=== PATIENT | male | born 1955 | race Caucasian/White ===

== ENCOUNTER → 2016-09-05 | Outpatient (CLI) | payer OTHER | LOC: MOB LAB 12:10 | PROVIDERS: ATTEND Internal Medicine | DX: E56.9 Vitamin deficiency, unspecified (principal); Z80.42 Family history of malignant neoplasm of prostate; Z12.5 Encounter for screening for malignant neoplasm of prostate | CPT/HCPCS: 82607; G0103 ==

== ENCOUNTER → 2016-09-27 | Outpatient (CLI) | payer OTHER | LOC: MOB LAB 16:38 | PROVIDERS: ATTEND Internal Medicine | DX: M79.1 Myalgia (principal) | CPT/HCPCS: 36415; 82550 ==

== ENCOUNTER → 2016-10-05 | Outpatient (CLI) | payer OTHER | LOC: MOB LAB 16:45 | PROVIDERS: ATTEND Internal Medicine | DX: C43.72 Malignant melanoma of left lower limb, including hip (principal); D12.6 Benign neoplasm of colon, unspecified | CPT/HCPCS: 36415; 82378 ==

== ENCOUNTER 2018-01-17 12:01 | Observation (INO) ==
[~2018-01-17 12:01] MED LIST: LIDOCAINE W/ SODIUM BICARB 0.5 ML SYR ONE; LIDOCAINE W/ SODIUM BICARB 0.5 ML SYR SUBD ONE; Lactated Ringers 1,000 ML PRIMARY IV ONE; ceFAZolin Inj 2gm (Premix) 2 GM/50 ML BAG IV ONE
[2018-01-17] MEDS ORDERED: diphenhydrAMINE 50 MG/1 ML VIAL ONE (14:05)
[2018-01-17] MEDS ORDERED: diphenhydrAMINE 50 MG/1 ML VIAL IVP ONE (14:05)
[2018-01-17] MEDS ORDERED: THROMBIN (BOVINE) 20,000 UNIT KIT TOPICAL ONE (15:00)
[2018-01-17] MEDS ORDERED: Sodium Chloride 0.9% vial 10 ML ONE (15:00)
[2018-01-17] MEDS ORDERED: BACITRACIN 50,000 UNIT VIAL IRRIG ONE (15:00)
[2018-01-17] MEDS ORDERED: LIDOCAINE HCL 2 % 10 ML JELLY URO-JECT TOPICAL ONE ×2 (15:26→17:05)
[2018-01-17] MEDS ORDERED: Propofol 1,000 MG/100 ML VIAL IV ONE ×2 (15:34→17:55)
[2018-01-17] MEDS ORDERED: REMIFENTANIL HCL 5 MG VIAL IV ONE ×2 (15:34→18:28)
[2018-01-17] MEDS ORDERED: MIDAZOLAM 5 MG/1 ML ONE (15:35)
[2018-01-17] MEDS ORDERED: LIDOCAINE MPF 2% - 5 ML (20 MG/1 ML) ONE (15:35)
[2018-01-17] MEDS ORDERED: ePHEDrine Inj 50 MG/ML AMP ONE (16:28)
[2018-01-17] MEDS ORDERED: Lactated Ringers 1,000 ML PRIMARY IV ONE ×2 (16:36→20:50)
[2018-01-17] MEDS ORDERED: PROPOFOL 10 MG/1 ML (200 MG/20 ML) VIAL IV ONE (17:10)
[2018-01-17] MEDS ORDERED: ONDANSETRON 4 MG/2 ML VIAL ONE (18:58)
[2018-01-17] MEDS ORDERED: HYDROmorphone 2 MG/1 ML ONE (18:59)
--- NOTE | 2018-01-17 19:55 | OPNOTE.NEU ---
Operative Note Operative Note: Neurosurgical Services Operative Note [facility] [place] Date of Surgery: 01-17-2018 Preoperative Diagnosis: Cervical herniated disc, C3-4, C4-5, C5-6 with radiculopathy Post-Op Diagnosis Codes: Same Procedure(s): 1. Anterior Cervical Decompression; 47009, [id number] 2. Anterior Cervical Arthrodesis; 76516, [id number] 3. Anterior Cervical Plating; 68913 4. Allograft Structural Graft; 37346 X3 5. Preparation of bone graft: A. Local autograft, same incision; B. Novelty of morselized iliac crest autograft, separate incision; C. Novelty of bone marrow aspirate, iliac crest; D. Addition of osteopromotive calcium compound; allograft DBM; 6. Intraoperative microsurgical technique 7. Intraoperative fluoroscopic navigation, [id number] 8. Intraoperative continuous neural monitoring, motor and sensory Surgeon(s): Woodrow Chavira MD Drying Machine Receiver(s): Kathy Gomez PA-C, Giovanni Barrientos, KARTHIK Anesthesia: GET Anesthesiologist / MACHINIST BRAKE: Unknown Brief Findings: Herniated disc with spinal cord compression all 3 levels. Procedure(s): We discussed the procedure, risks, advantages and disadvantages of surgical intervention at length. To prevent further pain, disability and potential progression of neurologic deficits, the patient would like to proceed with surgery. Introduction: After obtaining informed consent, careful consideration of the pre -operative studies and evaluation, the patient asked to proceed with surgery. The patient was taken to the operating room, given an anesthetic, positioned and prepared for surgery. All pressure points were meticulously padded and great care was taken to insure the patient was appropriately positioned to avoid any abnormal strain on the extremities or any other area. The operative region was prepared with iodine solution and isolated aseptically using routine sterile draping. Position / Approach: The patient was placed in the supine position such that an anterior approach could be taken to the neck. EXPOSURE: A right transverse neck incision at the center of the abnormal levels which was confirmed using fluoroscopy was made through skin, subcutaneous fat and the platysma muscle. Using sharp and blunt dissection, the anterior spine was exposed medial to the sternocleidomastoid muscle and carotid sheath and the longus coli muscles were carefully reflected off the vertebrae using electrocautery and a deep self-retaining retractor was place beneath them. Thereafter, distraction pins were place within the vertebral bodies above and below the abnormal levels. The inner space was then distracted to improve exposure during the decompression. DECOMPRESSION: While distracting the interspace, a radical discectomy was performed. After removal of the disk using curettes considerable posterior osteophytosis was encountered particularly on the left and a large disc herniation was identified. The osteophyte was removed using a high speed drill equipped with a saira bur, microsurgical technique and the intraoperative microscope for visualization. There was clear evidence of compression upon the exiting nerve root and spinal cord. The posterior longitudinal ligament was taken down and wide foraminotomies were fashioned on both sides. The epidural space was explored extensively confirming no further compression upon the neural elements. Identical decompressions were performed at all 3 levels. At all levels, there was clear evidence of compression upon the neural elements. ARTHRODESIS: After the decompression, the height of the inner space was measured and an allograft structural bone graft was selected which would fit snuggly within the space. The graft was loaded with bone graft which was prepared as described. The graft was placed using the fluoroscope to assess the graft position so that it could be countersunk appropriately. Grafts were placed at all 3 levels. HARVEST / PREPARATION of BONE GRAFT: The "bone graft" was prepared from the patient's own bone derived from the left hip collected by curetting bone from the hip through a separate slab incision(). This morselized bone was admixed with bone marrow aspirate also obtained from the hip (). Autologous local bone which was removed during the decompression through the same incision used for the fusion was stripped of surrounding soft tissues, morselized () and mixed with osteopromotive calcium compound as well as allograft demineralized bone matrix (), and this was combined with the previously described hip graft and concentrated bone marrow aspirate to form the "bone graft." ANTERIOR PLATE INSTRUMENTATION: Having completed the decompression and placement of the interbody spacers, a plate was selected which spanned the levels and also could be contoured to the anterior aspect of the patient's cervical spine. Osteophytes along the anterior spine were removed to allow the plate to conform to the spine appropriately. The plate was then secured to the spine using 14-16 mm screws, all of which were locked into position using the locking mechanism of the plate. Additional bone graft material was placed around the plate and around the implanted spacer within the inner space. CLOSURE: The wound was irrigated with copious amounts of antibiotic impregnated saline solution and immaculate hemostasis was achieved using thrombin soaked Gelfoam, bone wax along the bony margins, as well as electrocautery. Surgicel was used to cover the implanted graft and plate. A drain was placed in the pre-vertebral space and tunneled to an exit site lateral to the formed incision. The wound was then closed in anatomical layers using Vicryl suture in the subcutaneous tissue layers followed by Steri-Strips on the skin. OTHER TOOLS USED / UTILITY: All manipulation of the neural elements was performed using the microscope for visualization. As well, the fluoroscope was used to confirm the levels as indicated as well as to assist during implant placement and later to assess the patient's spinal alignment. There were no intra operative complications. Motor and sensory monitoring was performed throughout the procedure by a certified monitoring electrical electronics technician in the room in communication with a remote monitoring physician and no abnormal neurological findings were encountered. NEED FOR FIRE SUPPORT SPECIALIST: Kathy Beard PA-C and Giovanni Barrientos PA-C, were instrumental throughout the operation to assist with exposure of the neural structures and protect them as the bony elements were removed. They were also instrumental during placement of the implant(s) which often takes more than two hands to perform safely and efficiently. Estimated Blood Loss: Minimal Operative hemorrhage? Yes, expected amount. Drains: Hemovac Condition: Good Complications: None Authenticated by Dr. Chavira On Production CPT: 21971, 25424Q3, 31113, 56142J0, 57487-89, 09443-69, 01514-64, 78293-24, [id number]
[2018-01-17] MEDS ORDERED: LIDOCAINE W/ SODIUM BICARB 0.5 ML SYR SUBD PRN (20:04)
[2018-01-17] MEDS ORDERED: Meperidine Inj 50 MG/ML CARPUJECT IVP PRN (20:04)
[2018-01-17] MEDS ORDERED: ONDANSETRON 4 MG/2 ML VIAL IVP PRN (20:04)
[2018-01-17] MEDS ORDERED: HYDROmorphone 2 MG/1 ML IVP PRN (20:04)
--- NOTE | 2018-01-17 20:06 | CRNA.PROGR ---
Anesthesia Recovery Phase I - Post Anesthesia Evaluation Patient's Condition on Arrival in Phase I: Stable Pain Level: 2
--- NOTE | 2018-01-17 20:07 | CRNA.PROGR ---
Anesthesia Time - - Start date: 01/17/18 End date: 01/17/18 - Procedure/Recovery Time Anesthesia : Time In: 16:01 Anesthesia : Time Out: 19:47 Anesthesia : Total Time: 226 - Total Anesthesia Time Total Anesthesia Time (minutes): 226 - Other Weight: 83.461 kg Height: 5 ft 6 in Body Mass Index (BMI): 29.7 Physical Status: P2 Anesthesia Type: General Anesthesia : ET
[2018-01-17] MEDS ORDERED: Lactated Ringers 1,000 ML PRIMARY IV SCH (20:15)
[2018-01-17] MEDS ORDERED: Meperidine Inj 50 MG/ML CARPUJECT ONE (20:18)
[2018-01-17] MEDS: fentaNYL Inj 100 MCG/2 ML VIAL IVP PRN ×2 (20:38→20:45)
[2018-01-17] MEDS ORDERED: fentaNYL Inj 100 MCG/2 ML VIAL ONE (20:39)
[2018-01-17] MEDS ORDERED: DOCUSATE 100 MG CAPSULE PO PRN (21:10)
[2018-01-17] MEDS ORDERED: Ondansetron ODT Tab 4 MG TAB PO PRN (21:10)
[2018-01-17] MEDS ORDERED: LIDOCAINE HCL 2 % 10 ML JELLY URO-JECT TOPICAL PRN (21:10)
[2018-01-17] MEDS: oxyCODONE-ACETAMINOPHEN 5-325 TAB PO PRN (21:34)
[2018-01-17] MEDS: CYCLOBENZAPRINE 10 MG TABLET PO PRN (21:34)
[2018-01-17] MEDS: D5-1/2NS + 20mEq KCL 1,000 ML PRIMARY IV SCH (22:02)
[2018-01-17] MEDS: FAMOTIDINE 20 MG TABLET PO SCH (22:30)
[2018-01-17] MEDS: MORPHINE SULFATE 2 MG/1 ML IVP PRN (22:31)
[2018-01-18] MEDS: ceFAZolin Inj 1 GM in Sodium Chloride 0.9% 100 ML IV SCH ×2 (00:23→07:58)
[2018-01-18] MEDS: oxyCODONE-ACETAMINOPHEN 5-325 TAB PO PRN ×3 (00:57→08:23)
[2018-01-18] MEDS ORDERED: oxyCODONE-ACETAMINOPHEN 5-325 TAB PO ONE (01:10)
[2018-01-18] MEDS: MORPHINE SULFATE 2 MG/1 ML IVP PRN ×2 (02:05→05:46)
[2018-01-18] MEDS: CYCLOBENZAPRINE 10 MG TABLET PO PRN (07:59)
[2018-01-18] MEDS: FAMOTIDINE 20 MG TABLET PO SCH (07:59)
[2018-01-18] MEDS: D5-1/2NS + 20mEq KCL 1,000 ML PRIMARY IV SCH (08:08)
--- NOTE | 2018-01-18 08:16 | CRNA.PROGR ---
Anesthesia Note - Progress Notes Anesthesia Progress Note: Resting quietly in bed. Discussed anesthetic course and he has no questions or concerns regarding his anesthetic care.
[2018-01-18 08:19] VITALS: BP 128/77; RESP 18; TEMP 98.6; O2SAT 93
--- NOTE | 2018-01-18 08:20 | NEURO.PROG ---
Subjective Post Op Day: 1 Pain Management: PO Bolanos Catheter: No Diet: Regular Ambulating: Yes Additional Details: S: Mr Del Rosario is post op day one and doing well. His pain is controlled with his current home Oxycodone dose. He is ambulating with no difficulty. he has no weakness and is happy with his surgery and current results. He is ready to go home. O: A&O x3, appears comfortable. Wound clean and dry. Surgical drain output satisfactory. BUE and BLE STR 5/5. A: Post op day 1, anterior cervical disc fusion, multiple levels. P: Discharge home with . Removed drain prior to discharge. Home and follow up instructions given. Date of Service: 01/18/18 Objective : Data - Vital Signs Vital Signs and I&O: Vital Signs - Last Taken Temperature 98.2 F 01/18/18 04:39 Pulse Rate 66 01/18/18 04:39 Respiratory Rate 12 01/18/18 04:39 Blood Pressure 159/91 01/18/18 04:39 Pulse Ox 99 01/18/18 04:39 Intake and Output (24hr x 4 totals) 01/16/18 01/17/18 01/18/18 01/19/18 05:59 05:59 05:59 05:59 Intake Total 3971 / 3971 Output Total 2034 / 2034 Balance 1935 / 1935 - Objective : Exam - General General Appearance: No Acute Distress - Head Head Exam: Normal Inspection - Eye Eye Exam: Normal Appearance - Neck Additional Neck Exam Details: as noted. - Respiratory Respiratory Exam: Breathing Non Labored - Extremities Extremities Exam: Full ROM - Back Back Exam: Normal Inspection - Neurological Neurological Exam: Alert, Oriented x 3, Moves All Extremities Equally Assessment and Plan - Patient Problems (1) Cervical stenosis of spinal canal Current Visit: Yes Status: Resolved Onset Date: 01/06/16 Code(s): M48.02 - Spinal stenosis, cervical region
--- NOTE | 2018-01-21 00:42 | PDOC ---
HPI - History of Present Illness Date of Service: 01/17/18 Time of Service: 12:00 Chief Complaint: Neck pain History of Present Illness: Mr. Del Rosario is a 62 year old male seen on 10/05/2017 for a new patient evaluation in [place], [place]. He was referred by Dr. Valero for severe neck pain that is primarily to the back and lateral part of his neck. He has no pain radiating to his arms or hands. He has no weakness. He does have pain to both trapezius muscles. He had an MRI. He also had a cervical spine BETSY that provided approximately 90% pain reduction starting immediately but only lasted one day then pain returned. Bowel and bladder continue to function normal. He also had C4-5, C5-6 facet injections that provided him with 100% pain relief for approximately 3-4 hours following the procedure. Since the injection, the pain has returned and is worse than it was prior to the injection. I gave him the option to also have the C3-4 level injected, but he would like to proceed with surgery at this time. To address his neck, I would recommend a C3-4, C4-5, C5-6 anterior cervical decompression and fusion. All risks of surgery were disclosed and addressed. All patient questions and concerns were answered and addressed. Since our last evaluation he has had no new medical or neurological changes or complaints.. Past Medical History Tobacco Use: Never Smoker In the Past 12 Months, Have Used or Abuse Any of the Following Substance: None Medication / Allergies Home Medications: Home Medications 3 Medication Instructions Recorded Confirmed Type Aspirin 325 mg PO DAILY tab 12/16/14 01/17/18 History vitamin B complex tablet 1 tab PO QDAY 04/24/17 01/17/18 History ezetimibe 10 mg tablet 10 mg PO QHS #90 tab 06/22/17 01/17/18 Rx simvastatin 40 mg tablet 40 mg PO QHS #90 tab 06/22/17 01/17/18 Rx cholecalciferol (vitamin D3) 1,000 1,000 unit PO ONCE 06/27/17 01/17/18 History unit capsule candesartan 16 mg tablet 16 mg PO DAILY tab-cap 09/24/17 01/17/18 History Clopidogrel Bisulfate [Plavix] 75 mg PO DAILY 10/15/17 01/17/18 History pantoprazole 40 mg tablet,delayed 40 mg PO BID #90 tab 10/24/17 01/17/18 Rx release Ciprofloxacin HCl [Cipro] 500 mg PO BID 5 Days #10 tab 01/18/18 Rx Cyclobenzaprine HCl [Flexeril] 10 mg PO TID PRN #90 tab 01/18/18 Rx oxycodone 10 mg tablet 10 mg PO Q4-6H PRN #30 tab 01/18/18 Rx Allergies/Adverse Reactions: Allergies 3 Allergy/AdvReac Type Severity Reaction Status Date / Time No Known Drug Allergies AdvReac Unknown NOT Verified 01/08/18 10:19 APPLICABLE PAIN CONTRACT AdvReac Unknown NOT Uncoded 01/08/18 10:19 APPLICABLE Exam - Vitals Vital Signs: Vital Signs Temperature 98.6 F Temperature Source Temporal Artery Scan Pulse Rate [Pulse Oximeter] 73 Pulse Rate [Pulse Oximeter] 78 Pulse Rate 81 Respiratory Rate 18 Blood Pressure [Left Arm] 128/77 Blood Pressure 130/77 Pulse Ox 93 Oxygen Flow Rate 1 Oxygen Delivery Method Room Air Height 5 ft 6 in Weight 182 lb 12.8 oz - General General Appearance: No Acute Distress - Head Head Exam: Normal Inspection, Atraumatic - Eye Eye Exam: POSITIVE: Normal Appearance, PERRL, EOMI - ENT ENT Exam: POSITIVE: Normal Oropharynx - Neck Neck Exam: Tenderness - Respiratory Respiratory Exam: POSITIVE: Clear to Auscultation - Bilaterally - Cardiovascular Cardiovascular Exam: POSITIVE: RRR - GI/Abdominal GI/Abdominal Exam: POSITIVE: Normal Bowel Sounds, Non Tender, Non Distended - Rectal Rectal Exam: POSITIVE: Deferred - External Exam: POSITIVE: Deferred - Extremities Extremities Exam: POSITIVE: Normal Inspection, Full ROM - Back Back Exam: POSITIVE: Normal Inspection - Neurological Neurological Exam: POSITIVE: Alert, Oriented x 3, Reflexes Normal, Normal Gait, CN II-XII Intact, Speech Intact / Clear, Moves All Extremities Equally - Psychiatric Psychiatric Exam: POSITIVE: Normal Affect - Integumentary Integumentary Exam: POSITIVE: Normal Color, Warm, Dry - Central Line Examination Central Line Present on Admission: No Assessment and Plan - Patient Problems (1) Cervical stenosis of spinal canal Status: Resolved Onset Date: 01/06/16 Code(s): M48.02 - Spinal stenosis, cervical region - Assessment / Plan Additional Assessment/Plan Details: Proceed with ACDF - Time/Visit Time Spent With Patient: 15-25 Minutes
--- NOTE | 2018-01-21 08:25 | DI ---
XR C-SPINE 2-3 VW,01/17/2018 7:41 PM: Clinical History: Status post anterior spinal fusion. Previous Exam: December 09, 2015 Findings: AP and lateral views of the cervical spine are obtained, and demonstrate anatomic alignment without f ractures. Postsurgical changes are noted consistent with anterior screw and plate fixation of C3-C6. There is also interbody fusion at these levels. The prevertebral soft tissues are unremarkable. The lung apices are clear. Impression: Status post fusion of C3-C6.
--- NOTE | 2018-01-21 12:37 | PTI REPORT ---
Thank you for the referral of Favio Del Rosario. He was seen on 01/18/18 for an inpatient evaluation status post cervical fusion. SUBJECTIVE: The patient is a 62-year-old male who underwent a cervical fusion yesterday. The patient reports he is currently experiencing a pain level of 9/10 on the verbal analog scale (0=no pain, 10=worst pain). He states that his pain is primarily along the posterior side of his neck and upper thoracic region. The patient reports that he lives in [place]. He states that he does have three stairs to get into and out of his home; otherwise, everything is on one level. Prior to his surgery he was not using any type of assistive device for mobility. PAST MEDICAL HISTORY: Past medical history can be found in the patient's medical record. OBJECTIVE FINDINGS: General observations: The patient was alert and oriented to setting upon PT arrival. The patient was sitting edge of bed eating breakfast when the therapist arrived. The patient was instructed on precautions for status post cervical fusion including to avoid straining at end ranges of motion along with lifting precautions. Transfers: The patient was able to perform sit to stand transfer safely and independently. Ambulation: The patient ambulated 150 feet without assistive device with stand by assist x1 safely. The patient was able to ascend and descent one flight of stairs with stand by assist x1 and was able to do so safely. ASSESSMENT: The patient has good rehab potential. Problem List: Patient is status post cervical fusion Physical Therapy Goals: To be met by discharge from inpatient: Patient will be able to perform all transfers safely and independently. Patient will be able to ambulate at least 150 feet without assistive device safely and independently. Patient will be able to ascend and descend 1 flight of stairs safely and independently. TREATMENT PLAN: Patient has met all goals for Physical Therapy at this time and from a mobility standpoint, the patient is safe to return home. INITIAL TREATMENT: Treatment today consisted of the initial evaluation followed by one unit of functional activity. The patient was returned to his room and left with call light within place and alarm set. [facility]
== END 2018-01-18 10:27 | disposition home or self-care (01) ==
LOC: OR 12:01 → MED/SURG 12:01
PROVIDERS: ADMIT Neurological Surgery; ATTEND Neurological Surgery